=== PATIENT | female | born 2000 | race Caucasian/White ===

== ENCOUNTER 2019-04-05 18:47 | Emergency (ER) | payer BC ==
[~2019-04-05] VITALS: Ht 160 cm; Wt 79.4 kg
[2019-04-05 20:37] LABS: HEMATOCRIT 38.8 % (37.0-47.0); MCH 28.3 pg (26.0-34.0); MCHC 33.5 g/dL (28.0-37.0); MCV 84.6 fL (80.0-100.0); RBC 4.59 mil/uL (4.20-5.00); RDW 14.5 % (10.5-14.5); WBC 11.5 thou/uL (4.0-11.0)
[2019-04-05 22:12] VITALS: BP 118/76
== END 2019-04-05 22:12 | disposition home or self-care (01) ==
LOC: ER 18:47
PROVIDERS: Physician Assistant
DX: O46.91 Antepartum hemorrhage, unspecified, first trimester (principal); J45.909 Unspecified asthma, uncomplicated; Z3A.10 10 weeks gestation of pregnancy

== ENCOUNTER 2020-03-31 08:07 | Emergency (ER) | payer OTHER ==
[~2020-03-31] VITALS: Ht 157.5 cm; Wt 81.7 kg
[2020-03-31] MEDS ORDERED: NAPROSYN500 MG PO (09:10)
[2020-03-31 09:32] VITALS: BP 102/56
== END 2020-03-31 09:32 | disposition home or self-care (01) ==
LOC: ER 08:07
DX: M72.2 Plantar fascial fibromatosis (principal); J45.909 Unspecified asthma, uncomplicated; F17.210 Nicotine dependence, cigarettes, uncomplicated; Z88.8 Allergy status to other drugs, medicaments and biological substances